=== PATIENT | male | born 1970 | race Caucasian/White ===

== ENCOUNTER 2017-01-01 05:29 | Emergency (ER) | payer OTHER ==
[~2017-01-01] VITALS: Ht 188 cm; Wt 94.5 kg
[~2017-01-01 05:29] MED LIST: BUTA1CAP PO; IMIT6INJ SC; NEUR100C PO; ZOFR4TAB3 SL
[2017-01-01 05:40] VITALS: BP 140/82; PULSE 84; RESP 18; TEMP 98; O2SAT 98
[2017-01-01] MEDS ORDERED: KETOROLAC TROMETHAMINE 30 MG/ML (IVP) VIAL IVP ONE (06:00)
[2017-01-01] MEDS ORDERED: ONDANSETRON HCL 4 MG/2 ML VIAL IVP ONE (06:00)
[2017-01-01] MEDS ORDERED: LISD60 PO (06:00)
[2017-01-01] MEDS ORDERED: CIPR-9 PO (06:00)
[2017-01-01] MEDS ORDERED: WELLTAB39 PO (06:00)
[2017-01-01] MEDS ORDERED: HYDROmorphone HCL PF 1 MG/ML VIAL IVS ONE (06:00)
[2017-01-01] MEDS ORDERED: SODIUM CHLORIDE 0.9% FLUSH 10 ML FLUSH IVF PRN (06:00)
[2017-01-01 06:15] LABS: BLOOD, URINE LARGE (NEG); GLUCOSE,URINE NEG (NEG); KETONE, URINE NEG (NEG); NITRITE,URINE NEG (NEG); PH, URINE 5.5 (5.0-8.5)
[2017-01-01 06:24] LABS: METHOD OF COLLECTION CLEAN CATCH; URINE COLOR YELLOW (YELLW/STRAW)
[2017-01-01 06:25] LABS: COMMENT2 (UR) MUCOUS PRESENT; SQUAMOUS EPITHELIAL CELL URINE 0-5 /hpf (0-5); WBC, URINE 0-2 /hpf (0-5)
--- NOTE | 2017-01-01 06:38 | RADRPT ---
EXAM DATE/TIME: 01/01/2017 06:03 [place] COMPARISON: No previous studies available for comparison. INDICATIONS : Right flank pain, frequent urination. UTI ORAL CONTRAST: No oral contrast ingested. RADIATION DOSE: 14.57 CTDIvol (mGy) MEDICAL HISTORY : Renal calculi. SURGICAL HISTORY : None. ENCOUNTER: Initial ACUITY: 3 days PAIN SCALE: 9/10 LOCATION: Right flank TECHNIQUE: Volumetric scanning of the abdomen and pelvis was performed. Using automated exposure control and ad justment of the mA and/or kV according to patient size, radiation dose was kept as low as reasonably achievable to obtain optimal diagnostic quality images. DICOM format image data is available electro nically for review and comparison. FINDINGS: LOWER LUNGS: The visualized lower lungs are clear. LIVER: Homogeneous density without lesion. There is no dilation of the biliary tree. No calcified gallston es. SPLEEN: Normal size without lesion. PANCREAS: Within normal limits. KIDNEYS: Sub-centimeter nonobstructing renal calculi bilaterally, left greater than right. However, there is p elvocaliectasis and hydroureter of the right kidney due to a 3 millimeter stone in the distal right u reter just above the UVJ. ADRENAL GLANDS: Within normal limits. VASCULAR: There is no aortic aneurysm. BOWEL/MESENTERY: The stomach, small bowel, and colon demonstrate no acute abnormality. There is no free intraperitone al air or fluid. ABDOMINAL WALL: Within normal limits. RETROPERITONEUM: There is no lymphadenopathy. BLADDER: No wall thickening or mass. REPRODUCTIVE: Within normal limits. INGUINAL: There is no lymphadenopathy or hernia. MUSCULOSKELETAL: Within normal limits for patient age. CONCLUSION: 1. Bilateral subcentimeter nonobstructing renal calculi, left greater than right. 2. Right-sided pelvocaliectasis and hydroureter due to a 3 mm distal right ureteric stone just above the UVJ. Aguilar Monroe MD on January 01, 2017 at 6:29 Board Certified Radiologist. This report was verified electronically.
[2017-01-01] MEDS ORDERED: TAMS5CAP PO (06:43)
[2017-01-01] MEDS ORDERED: PERC5TAB12 PO (06:43)
[2017-01-01] MEDS ORDERED: PROM25TA10 PO (06:43)
--- NOTE | 2017-01-01 06:43 | PD ---
HPI . Right flank pain Chief Complaint: Complaint Time Seen by Provider: 05:50 Travel History International Travel<30 days: No Contact w/Intl Traveler<30days: No Traveled to known affect area: No History of Present Illness HPI Patient presents with right flank pain. He reports the onset of dysuria and some mild intermittent right flank pain several days ago. He was seen by his primary care provider who diagnosed him with UTI and placed on his pain became acutely worse and much more persistent just a few hours prior to presentation. Patient does report he is kidney colic and states that this pain is similar. No exacerbating or relieving factors. Pain is rated as 9/10. 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) Psychiatric: Yes Immunizations Current: Yes Migraines: Yes Tetanus Vaccination: > 5 Years Influenza Vaccination: Yes PNEUMOCCOCAL Vaccine (Year): 2008 Social History Alcohol Use: Yes (socially) Tobacco Use: No Substance Use: No Allergies-Medications (Allergen,Severity, Reaction): Coded Allergies: No Known Allergies (Verified , 01/01/17) Reported Meds & Prescriptions Reported Meds & Active Scripts Active Phenergan (Promethazine HCl) 25 Mg Tablet 25 Mg PO Q6H PRN Flomax (Tamsulosin HCl) 0.4 Mg Cap 0.4 Mg PO HS Percocet (Oxycodone-Acetaminophen) 5-325 mg Tab 1-2 Tab PO Q4H PRN Reported Cipro (Ciprofloxacin HCl) 500 Mg Tab Unknown Dose PO BID Wellbutrin Xl 24 HR (Bupropion HCl) 300 Mg Tab 300 Mg PO DAILY Vyvanse (Lisdexamfetamine Dimesylate) 60 Mg Cap 60 Mg PO DAILY Review of Systems Except as stated in HPI: all other systems reviewed are Neg General / Constitutional: No: Fever, Chills Genitourinary: Positive: Urgency, Frequency, Dysuria, Flank Pain Physical Exam Narrative GENERAL: Patient appears very uncomfortable. He is having a hard time being still. SKIN: Warm and dry. HEAD: Atraumatic. Normocephalic. EYES: Pupils equal and round. ENT: No nasal bleeding or discharge. Mucous membranes pink and moist. NECK: Trachea midline. CARDIOVASCULAR: Regular rate and rhythm. RESPIRATORY: No accessory muscle use. GASTROINTESTINAL: Abdomen soft, non-tender, nondistended. No CVA tenderness. MUSCULOSKELETAL: No obvious deformities. No edema. NEUROLOGICAL: Awake and alert. No obvious cranial nerve deficits. Motor grossly within normal limits. Normal speech. PSYCHIATRIC: Appropriate mood and affect; insight and judgment normal. Data Data Last Documented VS Vital Signs Date Time Temp Pulse Resp B/P Pulse Ox O2 Delivery O2 Flow Rate FiO2 01/01/17 05:51 84 18 01/01/17 05:40 98.0 140/82 98 Room Air Orders Ua Includes Microscopic (01/01/17 05:50) Ct Abd/Pel W/O Iv Contrast (01/01/17 05:50) Iv Access Insert/Monitor (01/01/17 05:50) Ketorolac Inj (Toradol Inj) (01/01/17 06:00) Ondansetron Inj (Zofran Inj) (01/01/17 06:00) Sodium Chloride 0.9% Flush (Ns Flush) (01/01/17 06:00) Hydromorphone Pf Inj (Dilaudid Pf Inj) (01/01/17 06:00) Labs Laboratory Tests Test 01/01/17 05:55 Urine Collection Type CLEAN CATCH Urine Color YELLOW Urine Turbidity CLEAR Urine pH 5.5 Urine Specific [place] 1.020 Urine Protein NEG mg/dL Urine Glucose (UA) NEG mg/dL Urine Ketones NEG mg/dL Urine Occult Blood LARGE Urine Nitrite NEG Urine Bilirubin NEG Urine Leukocyte Esterase NEG Urine RBC 20-24 /hpf Urine WBC 0-2 /hpf Urine Squamous Epithelial 0-5 /hpf Cells Urine Amorphous Sediment FEW Urine Collection Time 0555 [facility] Medical Decision Making Medical Screen Exam Complete: Yes Emergency Medical Condition: Yes Differential Diagnosis Differential diagnosis of flank pain includes but is not limited to kidney stone , pyelonephritis, musculoskeletal pain, PE Narrative Course Patient presents with right flank pain. His symptoms have waxed and waned for a couple of days but became acutely worse a few hours prior to presentation. He most likely has a kidney stone. An IV was started and he was given IV Dilaudid, Toradol and Zofran. UA and CT were ordered. Laboratory Tests Test 01/01/17 05:55 Urine Collection Type CLEAN CATCH Urine Color YELLOW Urine Turbidity CLEAR Urine pH 5.5 Urine Specific [place] 1.020 Urine Protein NEG mg/dL Urine Glucose (UA) NEG mg/dL Urine Ketones NEG mg/dL Urine Occult Blood LARGE Urine Nitrite NEG Urine Bilirubin NEG Urine Leukocyte Esterase NEG Urine RBC 20-24 /hpf Urine WBC 0-2 /hpf Urine Squamous Epithelial 0-5 /hpf Cells Urine Amorphous Sediment FEW Urine Collection Time 0555 CT: 1. Bilateral subcentimeter nonobstructing renal calculi, left greater than right. 2. Right-sided pelvocaliectasis and hydroureter due to a 3 mm distal right ureteric stone just above the UVJ. Pain is much improved. The patient will be discharged home. Diagnosis Primary Impression: Renal colic on right side Referrals: Nicolas Evans MD Patient Instructions: General Instructions, Narcotic given in the ED, Renal Colic (DC) Med/Other Pt SpecificInfo: Prescription(s) given Scripts Promethazine (Phenergan)25 Mg [id number] Mg PO Q6H PRN (NAUSEA OR VOMITING) #10 TAB Ref 0 Prov:Sofy Melendez MD 01/01/17 Tamsulosin (Flomax)0.4 Mg Cap0.4 Mg PO HS #30 CAP Ref 0 Prov:Sofy Melendez MD 01/01/17 Oxycodone-Acetaminophen (Percocet)5-325 mg Tab1-2 Tab PO Q4H PRN (PAIN) #15 TAB Ref 0 Prov:Sofy Melendez MD 01/01/17 Disposition: 01 DISCHARGE HOME Condition: Stable Sofy Melendez MD Jan 01, 2017 06:43
[2017-01-01 06:56] VITALS: BP 136/82
== END 2017-01-01 06:57 | disposition home or self-care (01) ==
LOC: PHED 05:29
DX: N20.0 Calculus of kidney (principal); Z86.59 Personal history of other mental and behavioral disorders; Z87.442 Personal history of urinary calculi; Z86.69 Personal history of other diseases of the nervous system and sense organs
CPT/HCPCS: 74176; 81001; 96374; 96375; 99285; J1170; J1885; J2405

== ENCOUNTER 2017-03-29 14:08 | Emergency (ER) | payer OTHER ==
[~2017-03-29 14:08] MED LIST changes: -BUTA1CAP PO; +CIPR-9 PO; -IMIT6INJ SC; +LISD60 PO; -NEUR100C PO; +PERC5TAB12 PO; +PROM25TA10 PO; +TAMS5CAP PO; +WELLTAB39 PO; -ZOFR4TAB3 SL
[2017-03-29 14:12] VITALS: BP 128/84; PULSE 105; RESP 15; TEMP 97.6; O2SAT 98
[2017-03-29] MEDS ORDERED: CYMB60CA PO (14:27)
--- NOTE | 2017-03-29 14:27 | PD ---
HPI Chief Complaint: GI Complaint Time Seen by Provider: 14:19 Travel History International Travel<30 days: No Contact w/Intl Traveler<30days: No Traveled to known affect area: No History of Present Illness HPI This 46-year-old male is complaining of vomiting for 2 days. He vomited about 6 times this morning. He is not having abdominal pain. He is not having diarrhea. There's been no fever. He started vomiting yesterday and today he developed a sharp headache. He has had migraines in the past. He did not have any numbness or tingling. 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) Psychiatric: Yes Immunizations Current: Yes Migraines: Yes PNEUMOCCOCAL Vaccine (Year): 2008 Social History Alcohol Use: Yes (socially) Tobacco Use: No Substance Use: No Allergies-Medications (Allergen,Severity, Reaction): Coded Allergies: No Known Allergies (Verified Adverse Reaction, Unknown, 03/29/17) Reported Meds & Prescriptions Reported Meds & Active Scripts Active Zofran Odt (Ondansetron Odt) 4 Mg Tab 4 Mg SL Q8HR PRN Phenergan (Promethazine HCl) 25 Mg Tablet 25 Mg PO Q6H PRN Reported Cymbalta DR (Duloxetine HCl) 60 Mg Capdr 60 Mg PO DAILY Vyvanse (Lisdexamfetamine Dimesylate) 60 Mg Cap 60 Mg PO DAILY Review of Systems General / Constitutional: No: Fever, Chills Eyes: No: Diploplia HENT: Positive: Headaches, No: Rhinitis, Rhinorrhea Cardiovascular: No: Chest Pain or Discomfort, Palpitations Respiratory: No: Cough, Shortness of Breath Gastrointestinal: Positive: Vomiting Genitourinary: No: Urgency, Frequency Musculoskeletal: No: Myalgias, Arthralgias Skin: No Rash, No Itching Neurologic: No: Weakness, Dizziness Hematologic/Lymphatic: No: Easy Bruising Physical Exam Narrative GENERAL: Well-developed male SKIN: Focused skin assessment warm/dry. HEAD: Atraumatic. Normocephalic. EYES: Pupils equal and round. No scleral icterus. No injection or drainage. ENT: No nasal bleeding or discharge. Mucous membranes pink and moist. NECK: Trachea midline. No JVD. Neck is supple CARDIOVASCULAR: Regular rate and rhythm. No murmur appreciated. RESPIRATORY: No accessory muscle use. Clear to auscultation. Breath sounds equal bilaterally. GASTROINTESTINAL: Abdomen soft, non-tender, nondistended. Hepatic and splenic margins not palpable. MUSCULOSKELETAL: No obvious deformities. No clubbing. No cyanosis. No edema. NEUROLOGICAL: Awake and alert. No obvious cranial nerve deficits. Motor grossly within normal limits. Normal speech. PSYCHIATRIC: Appropriate mood and affect; insight and judgment normal. Data Data Last Documented VS Vital Signs Date Time Temp Pulse Resp B/P (MAP) Pulse Ox O2 Delivery O2 Flow Rate FiO2 03/29/17 15:38 88 16 142/80 (100) 95 Room Air 03/29/17 14:12 97.6 Orders Orders Complete Blood Count With Diff (03/29/17 14:24) Comprehensive Metabolic Panel (03/29/17 14:24) Lipase (03/29/17 14:24) Sodium Chlor 0.9% 1000 Ml Inj (Ns 1000 M (03/29/17 14:30) Ondansetron Inj (Zofran Inj) (03/29/17 14:30) Prochlorperazine Inj (Compazine Inj) (03/29/17 14:30) Metoclopramide Inj (Reglan Inj) (03/29/17 15:30) Ketorolac Inj (Toradol Inj) (03/29/17 15:30) Labs Laboratory Tests Test 03/29/17 14:15 White Blood Count 5.2 TH/MM3 Red Blood Count 5.55 MIL/MM3 Hemoglobin 16.1 GM/DL Hematocrit 48.4 % Mean Corpuscular Volume 87.1 FL Mean Corpuscular Hemoglobin 29.1 PG Mean Corpuscular Hemoglobin Concent 33.4 % Red Cell Distribution Width 12.1 % Platelet Count 215 TH/MM3 Mean Platelet Volume 8.4 FL Neutrophils (%) (Auto) 78.4 % Lymphocytes (%) (Auto) 14.5 % Monocytes (%) (Auto) 5.4 % Eosinophils (%) (Auto) 1.0 % Basophils (%) (Auto) 0.7 % Neutrophils # (Auto) 4.0 TH/MM3 Lymphocytes # (Auto) 0.8 TH/MM3 Monocytes # (Auto) 0.3 TH/MM3 Eosinophils # (Auto) 0.1 TH/MM3 Basophils # (Auto) 0.0 TH/MM3 CBC Comment DIFF FINAL Differential Comment Blood Urea Nitrogen 12 MG/DL Creatinine 1.20 MG/DL Random Glucose 121 MG/DL Total Protein 7.9 GM/DL Albumin 4.3 GM/DL Calcium Level 9.1 MG/DL Alkaline Phosphatase 78 U/L Aspartate Amino Transf (AST/SGOT) 25 U/L Alanine Aminotransferase (ALT/SGPT) 48 U/L Total Bilirubin 1.8 MG/DL Sodium Level 138 MEQ/L Potassium Level 3.7 MEQ/L Chloride Level 100 MEQ/L Carbon Dioxide Level 29.9 MEQ/L Anion Gap 8 MEQ/L Estimat Glomerular Filtration Rate 65 ML/MIN Lipase 182 U/L MDM Medical Decision Making Medical Screen Exam Complete: Yes Emergency Medical Condition: Yes Medical Record Reviewed: Yes Differential Diagnosis Differential includes acute gastritis, viral syndrome, headache Narrative Course Lab work is normal. He was initially given fluids and Compazine for treatment of migraine headache. He reported no relief so he has been given Reglan and Toradol. Etiology of his vomiting is not clear at preceded the headache was not associated with any pain. I suspect some viral gastritis. He reports relief after Toradol. He is stable for discharge Diagnosis Primary Impression: Acute gastritis Qualified Codes: K29.00 - Acute gastritis without bleeding Additional Impression: Migraine headache Qualified Codes: G43.009 - Migraine without aura, not intractable, without status migrainosus Scripts Ondansetron Odt (Zofran Odt) 4 Mg Tab 4 MG SL Q8HR Y for Nausea/Vomiting, #10 TAB 0 Refills Prov: Andrea Rogers MD 03/29/17 Disposition: 01 DISCHARGE HOME Condition: Stable Andrea Rogers MD Mar 29, 2017 14:27
[2017-03-29] MEDS ORDERED: PROCHLORPERAZINE INJ 10 MG/2 ML VIAL IV PUSH ONE (14:30)
[2017-03-29] MEDS ORDERED: SODIUM CHLOR 0.9% 1000 ML INJ 1,000 ML IV ONE (14:30)
[2017-03-29] MEDS ORDERED: ONDANSETRON HCL 4 MG/2 ML VIAL IV PUSH ONE (14:30)
[2017-03-29 14:38] VITALS: BP 121/81; PULSE 105; RESP 18; O2SAT 95
[2017-03-29 14:41] LABS: BASOPHIL % 0.7 % (0.0-2.0); EOSINOPHIL # 0.1 TH/MM3 (0-0.4); HEMATOCRIT 48.4 % (39.0-51.0); HEMO FLAGS DIFF FINAL; LYMPH % 14.5 % (9.0-44.0); LYMPHOCYTE # 0.8 TH/MM3 (1.0-4.8); MEAN CELL VOLUME 87.1 FL (80.0-100.0); MEAN CORPUSCULAR HEMOGLOBIN 29.1 PG (27.0-34.0); MEAN CORPUSCULAR HGB CONC 33.4 % (32.0-36.0); MONO % 5.4 % (0.0-8.0); NEUT % 78.4 % (16.0-70.0); PLATELET COUNT 215 TH/MM3 (150-450); RED BLOOD COUNT 5.55 MIL/MM3 (4.50-5.90); RED CELL DISTRIBUTION WIDTH 12.1 % (11.6-17.2); WHITE BLOOD COUNT 5.2 TH/MM3 (4.0-11.0)
[2017-03-29 14:54] LABS: CHLORIDE 100 MEQ/L (98-107); POTASSIUM 3.7 MEQ/L (3.5-5.1); SODIUM (NA) 138 MEQ/L (136-145)
[2017-03-29 14:58] LABS: ANION GAP 8 MEQ/L (5-15); BICARBONATE 29.9 MEQ/L (21.0-32.0); BLOOD UREA NITROGEN 12 MG/DL (7-18)
[2017-03-29 15:01] LABS: ALT (GPT) 48 U/L (12-78); AST (GOT) 25 U/L (15-37); GLOMERULAR FILTRATION RATE 65 ML/MIN (>89)
[2017-03-29 15:02] LABS: TOTAL BILIRUBIN ADULT 1.8 MG/DL (0.2-1.0)
[2017-03-29 15:03] LABS: ALKALINE PHOSPHATASE 78 U/L (45-117)
[2017-03-29 15:06] VITALS: BP_SYST 121; BP_SYST 138; BP_DIAS 78; BP_DIAS 81; PULSE 75; RESP 18; O2SAT 96; O2SAT 97
[2017-03-29] MEDS ORDERED: KETOROLAC TROMETHAMINE 30 MG/ML (IVP) VIAL IV PUSH ONE (15:30)
[2017-03-29] MEDS ORDERED: METOCLOPRAMIDE HCL 10 MG/2 ML VIAL IV PUSH ONE (15:30)
[2017-03-29 15:38] VITALS: BP 142/80; PULSE 88; RESP 16; O2SAT 95
[2017-03-29] MEDS ORDERED: ZOFR4TAB3 SL (15:40)
[2017-03-29 16:11] VITALS: BP 118/71; PULSE 73; RESP 18; O2SAT 97
== END 2017-03-29 16:17 | disposition home or self-care (01) ==
LOC: PHED 14:08
DX: K29.00 Acute gastritis without bleeding (principal); G43.009 Migraine without aura, not intractable, without status migrainosus
CPT/HCPCS: 80053; 83690; 85025; 96361; 96374; 96375; 99284; J0780; J1885; J2405; J2765; J7030